=== PATIENT | male | born 1955 | race Caucasian/White ===

== ENCOUNTER 2019-05-14 03:21 | Inpatient (IN) | payer MEDICARE, OTHER ==
[~2019-05-14] VITALS: Ht 182.9 cm; Wt 76.1 kg
[2019-05-14 03:49] LABS: BASOPHILS # (AUTO) 0.1 X10'3 (0-0.2); EOSINOPHILS # (AUTO) 0.2 X10'3 (0-0.9); EOSINOPHILS % (AUTO) 2.2 % (0-6); HEMATOCRIT 43.4 % (42.0-52.0); HEMOGLOBIN 14.7 g/dl (14.0-17.9); LYMPHOCYTES # (AUTO) 1.9 X10'3 (1.1-4.8); LYMPHOCYTES % (AUTO) 18.8 % (21-51); MEAN CORPUSCULAR HGB CONC 33.9 g/dL (33.0-36.5); MEAN CORPUSCULAR VOLUME 91.4 FL (78-98); MEAN PLATELET VOLUME 8.9 FL (7.4-10.4); MONOCYTES # (AUTO) 0.8 X10'3 (0-0.9); MONOCYTES % (AUTO) 7.7 % (2-12); NEUTROPHILS # (AUTO) 7.1 X10'3 (1.8-7.7); NEUTROPHILS % (AUTO) 70.3 % (42-75); PLATELET COUNT 247 X10'3 (140-440); RED BLOOD COUNT 4.75 X10'6 (4.70-6.10); WHITE BLOOD COUNT 10.2 X10'3 (4.5-11.0)
[2019-05-14 03:57] LABS: ALANINE AMINOTRANSFERASE 40 U/L (12-78); ALBUMIN 3.5 G/DL (3.4-5.0); ALBUMIN/GLOBULIN RATIO 0.9 (1.1-1.5); ALKALINE PHOSPHATASE 110 IU/L (46-116); ANION GAP 13 (8-16); ASPARTATE AMINO TRANSFERASE 32 U/L (10-37); BILIRUBIN,TOTAL 0.7 MG/DL (0.1-1.0); BLOOD UREA NITROGEN 24 MG/DL (7-18); BUN/CREATININE RATIO 15.1 (5.4-32.0); CALCIUM 8.4 MG/DL (8.5-10.1); CHLORIDE 106 MMOL/L (99-107); CREATININE 1.59 MG/DL (0.60-1.10); GLUCOSE 117 MG/DL (70-104); SODIUM 142 MMOL/L (135-145); TOTAL CARBON DIOXIDE 23.5 MMOL/L (24-32); TOTAL PROTEIN 7.2 G/DL (6.4-8.2); eGFR 44 ML/MIN
[2019-05-14] MEDS ORDERED: aspirin 81mg tab.chew PO ONE (04:25)
--- NOTE | 2019-05-14 04:58 | NUR ---
was escorted to pt room. Pt and began arguing as felt "disrespected" here because Xiao DO asked if she had a place to stay tonight. insisted to pt that he leave AMA and that we call him an ambulance to take him elsewhere. Pt and began arguing/yelling loudly as pt does not want to leave AMA. Security was called and was asked to stop yelling or she would need to leave. Pt and stopped yelling and pt is agreeable to stay. Will continue to monitor.
[2019-05-14] MEDS ORDERED: potassium Cl 20 mEq SR tablet PO PRN ×2 (05:10)
[2019-05-14] MEDS ORDERED: ondansetron/PF 4mg/2ml inj IV PRN (05:10)
[2019-05-14] MEDS ORDERED: acetaminophen 325mg tablet PO PRN ×2 (05:10)
[2019-05-14] MEDS ORDERED: magnesium 4gm in 100ml NS 100 ML IV PRN (05:10)
[2019-05-14] MEDS ORDERED: mag hydrox/Alum hydrox/simeth 30ml oral suspension PO PRN (05:10)
[2019-05-14] MEDS ORDERED: magnesium 2GM in 50ml NS 50 ML IV PRN (05:10)
[2019-05-14] MEDS ORDERED: magnesium Cl slow-release 64mg tablet PO PRN (05:10)
[2019-05-14] MEDS ORDERED: magnesium hydroxide 30ml (MOM) UD suspension PO PRN (05:10)
[2019-05-14] MEDS ORDERED: potassium CL 10mEq/100ml bag 100 ML IV PRN ×2 (05:10)
[2019-05-14] MEDS ORDERED: NO HOME MEDS (05:32)
[2019-05-14 06:04] LABS: URINE AMPHETAMINE SCREEN POSITIVE (Neg); URINE BARBITUATE SCREEN NEGATIVE (Neg); URINE BENZODIAZEPINES SCREEN NEGATIVE (Neg); URINE CANNABINOID SCREEN POSITIVE (Neg); URINE COCAINE SCREEN NEGATIVE (Neg); URINE METHADONE SCREEN NEGATIVE (Neg); URINE OPIATE SCREEN NEGATIVE (Neg); URINE PHENCYCLIDINE SCREEN NEGATIVE (Neg)
[2019-05-14] MEDS: K and/or MAG REPLACEMENT MC SCH (07:02)
[2019-05-14] MEDS: enoxaparin 40mg/0.4ml syringe SUBCUT SCH (07:07)
[2019-05-14] MEDS: lisinopril 10 MG tablet PO SCH (07:09)
[2019-05-14] MEDS: carVEDilol 3.125mg tablet PO SCH ×2 (07:09→20:10)
[2019-05-14] MEDS ORDERED: furosemide 40mg/4ml inj IV SCH (08:00)
[2019-05-14 11:40] VITALS: BP 124/78
--- NOTE | 2019-05-14 13:00 | NUR ---
Patient in room PCU 3017. I have received report from Luisa DO and had the opportunity to ask questions and assume patient care.
--- NOTE | 2019-05-14 13:10 | NUR ---
Patient arrived on unit stable. Dr Chery in to see patient. Received tele report from [employer] and gave to Dr Chery. Patient oriented to unit. Instructed pt to call for help for first time ambulating so he can be assessed for safety.
[2019-05-14 15:00] VITALS: BP 95/63
[2019-05-14 18:00] VITALS: BP 114/69
--- NOTE | 2019-05-14 18:00 | NUR ---
Problems reprioritized. Patient report given, questions answered & plan of care reviewed with ERNESTINA Stahl.
--- NOTE | 2019-05-14 18:20 | NUR ---
Patient in room PCU 3010L. I have received report from ERNESTINA Leslie and had the opportunity to ask questions and assume patient care. Pt denies CP, n/v, dizziness and rated pain 0/10. Pt is in 1000ml fluid restriction. Will continue to monitor
[2019-05-14] MEDS ORDERED: temazepam 15mg capsule PO PRN (21:00)
[2019-05-14 22:00] VITALS: BP 91/59
[2019-05-14 23:00] VITALS: BP 99/66
[2019-05-15 02:00] VITALS: BP 106/83
[2019-05-15 05:45] LABS: BASOPHILS # (AUTO) 0.1 X10'3 (0-0.2); BASOPHILS % (AUTO) 0.7 % (0-1); EOSINOPHILS # (AUTO) 0.3 X10'3 (0-0.9); HEMATOCRIT 42.5 % (42.0-52.0); HEMOGLOBIN 14.4 g/dl (14.0-17.9); LYMPHOCYTES % (AUTO) 23.1 % (21-51); MEAN CORPUSCULAR HEMOGLOBIN 30.6 PG (27.0-31.0); MEAN CORPUSCULAR HGB CONC 33.9 g/dL (33.0-36.5); MEAN CORPUSCULAR VOLUME 90.3 FL (78-98); MEAN PLATELET VOLUME 8.7 FL (7.4-10.4); MONOCYTES # (AUTO) 0.6 X10'3 (0-0.9); MONOCYTES % (AUTO) 7.4 % (2-12); NEUTROPHILS # (AUTO) 5.7 X10'3 (1.8-7.7); NEUTROPHILS % (AUTO) 65.8 % (42-75); PLATELET COUNT 224 X10'3 (140-440); RED BLOOD COUNT 4.71 X10'6 (4.70-6.10); RED CELL DISTRIBUTION WIDTH 13.9 % (11.5-14.5); WHITE BLOOD COUNT 8.6 X10'3 (4.5-11.0)
[2019-05-15 06:03] LABS: ANION GAP 12 (8-16); BLOOD UREA NITROGEN 28 MG/DL (7-18); BUN/CREATININE RATIO 21.5 (5.4-32.0); CALCIUM 7.8 MG/DL (8.5-10.1); CHLORIDE 108 MMOL/L (99-107); CHOLESTEROL 121 MG/DL (0-200); GLUCOSE 97 MG/DL (70-104); HDL CHOLESTEROL 41 MG/DL (35-60); LDL CHOLESTEROL 70 MG/DL (50-100); MAGNESIUM 1.9 MG/DL (1.5-2.4); SODIUM 143 MMOL/L (135-145); TOTAL CARBON DIOXIDE 23.3 MMOL/L (24-32); TRIGLYCERIDES 71 MG/DL (20-135); eGFR 55 ML/MIN
--- NOTE | 2019-05-15 06:10 | NUR ---
Problems reprioritized. Patient report given, questions answered & plan of care reviewed with ERNESTINA Franco. Patient stable at shift change
--- NOTE | 2019-05-15 06:23 | NUR ---
Patient in room PCU 3017. I have received report from ERNESTINA Stahl and had the opportunity to ask questions and assume patient care.
[2019-05-15 07:01] VITALS: BP 119/72
[2019-05-15] MEDS: carVEDilol 3.125mg tablet PO SCH (07:45)
[2019-05-15 07:46] VITALS: BP_SYST 119
[2019-05-15] MEDS: lisinopril 10 MG tablet PO SCH (07:46)
[2019-05-15] MEDS: enoxaparin 40mg/0.4ml syringe SUBCUT SCH (08:00)
[2019-05-15] MEDS: K and/or MAG REPLACEMENT MC SCH (08:00)
[2019-05-15] MEDS ORDERED: furosemide 40mg/4ml inj IV SCH (08:00)
[2019-05-15] MEDS ORDERED: spironolactone 25 MG tablet PO SCH (08:30)
--- NOTE | 2019-05-15 11:39 | NUR ---
Pt left hospital before discharge was complete. He was not given any written discharge instructions. He was advised to follow up with a primary MD and a cardiology referral. Appt was made at [facility] for pt. He left without the date and time.
== END 2019-05-15 11:35 | disposition left against medical advice (07) | DRG 291 ==
LOC: ER 03:22 → PCU 3S 11:47
PROVIDERS: ADMIT Hospitalist; ATTEND Internal Medicine
DX: I13.0 Hypertensive heart and chronic kidney disease with heart failure and stage 1 through stage 4 chronic kidney disease, or unspecified chronic kidney disease (principal); I50.23 Acute on chronic systolic (congestive) heart failure; I50.9 Heart failure, unspecified; N18.3 Chronic kidney disease, stage 3 (moderate); Z53.21 Procedure and treatment not carried out due to patient leaving prior to being seen by health care provider; F12.10 Cannabis abuse, uncomplicated; Z96.642 Presence of left artificial hip joint; F15.10 Other stimulant abuse, uncomplicated; I25.2 Old myocardial infarction; Z91.14 Patient's other noncompliance with medication regimen; Z91.19 Patient's noncompliance with other medical treatment and regimen; Z71.51 Drug abuse counseling and surveillance of drug abuser
CPT/HCPCS: 36415; 71045; 80048; 80053; 80061; 80305; 83735; 83880; 84484; 85025; 87081; 93005; 93306; 96372; 96374; 99285; G0378; J1650; J1940